=== PATIENT | male | born 1975 | race African-American/Black ===

== ENCOUNTER 2024-06-17 11:06 | Emergency (ER) | payer MEDICAID ==
[~2024-06-17] VITALS: Ht 185.4 cm; Wt 90.0 kg
[~2024-06-17 11:06] MED LIST: ASPI-1160 PO; METO-539 PO; TH25 PO
[2024-06-17 11:09] VITALS: BP 140/86; PULSE 90; RESP 16; O2SAT 95
== END 2024-06-17 11:08 | disposition left against medical advice (07) ==
LOC: ER 11:06
DX: R07.9 Chest pain, unspecified (principal); Z53.21 Procedure and treatment not carried out due to patient leaving prior to being seen by health care provider

== ENCOUNTER 2024-06-17 18:04 | Emergency (ER) | payer OTHER, MEDICAID ==
[~2024-06-17] VITALS: Ht 185.4 cm; Wt 91.0 kg
[2024-06-17 18:05] VITALS: BP 186/115; PULSE 78; RESP 20; O2SAT 97
[2024-06-17] MEDS ORDERED: ASPIRIN 325MG EC TABLET PO ONE (18:15)
== END 2024-06-17 18:56 ==
LOC: ER 18:04
DX: R07.89 Other chest pain (principal); I10 Essential (primary) hypertension; J45.909 Unspecified asthma, uncomplicated; F20.0 Paranoid schizophrenia; Z79.82 Long term (current) use of aspirin
CPT/HCPCS: 93005; 99283

== ENCOUNTER 2024-07-08 15:34 | Emergency (ER) | payer MEDICAID, OTHER ==
[~2024-07-08] VITALS: Ht 177.8 cm; Wt 75.0 kg
[2024-07-08 15:36] VITALS: BP 165/102; PULSE 70; RESP 16; TEMP 98.2; O2SAT 97
[2024-07-08] MEDS ORDERED: POTA-354 MT (21:10)
== END 2024-07-08 16:48 | disposition left against medical advice (07) ==
LOC: ER 15:34
DX: R07.2 Precordial pain (principal); I10 Essential (primary) hypertension; J45.909 Unspecified asthma, uncomplicated
CPT/HCPCS: 99283

== ENCOUNTER 2024-07-08 18:03 | Emergency (ER) | payer MEDICAID ==
[~2024-07-08] VITALS: Ht 177.8 cm; Wt 87.0 kg
[2024-07-08 18:05] VITALS: TEMP 99; O2SAT 100
[2024-07-08 19:13] LABS: CHLORIDE 106 mEq/L (98-107); POTASSIUM 3.2 mEq/L (3.5-5.1); SODIUM 138 mEq/L (136-145)
[2024-07-08 19:14] LABS: BASOPHILS % 0.3 % (0.0-2.0); CALCIUM 8.5 mg/dL (8.7-10.4); CARBON DIOXIDE 26 mEq/L (21-32); EOSINOPHILS % 1.8 % (0.0-5.0); HEMATOCRIT. 37.6 % (42.0-52.0); HEMOGLOBIN. 12.4 g/dL (14.0-18.0); LYMPHOCYTES % 29.8 % (20.0-50.0); MEAN CORPUSCULAR HEMOGLOBIN 27.4 pg (28.0-32.0); MEAN PLATELET VOLUME 9.2 fl (7.4-10.4); MONOCYTES % 5.6 % (2.0-8.0); NEUTROPHILS % 62.5 % (40.0-76.0); PLATELET 218 x1000/uL (130-400); RED BLOOD CELL COUNT 4.53 mill/uL (4.7-6.1); WHITE BLOOD COUNT 7.3 x1000/uL (4.5-11.0)
[2024-07-08 19:15] VITALS: BP 169/94; PULSE 72; RESP 14; O2SAT 96
[2024-07-08] MEDS: ASPIRIN 325MG EC TABLET PO ONE (19:16)
[2024-07-08] MEDS: NITROGLYCERIN 0.4MG TABLET SL SL ONE (19:16)
[2024-07-08 19:18] LABS: INR 0.9; PROTHROMBIN TIME 10.2 sec (9.6-11.0)
[2024-07-08 19:19] LABS: GLUCOSE 128 mg/dL (70-105); UREA NITROGEN BLOOD 17 mg/dL (9-23)
[2024-07-08 19:21] LABS: TROPONIN I HIGH SENSITIVITY 18 ng/L (3.0-53)
[2024-07-08 19:47] LABS: ETHANOL BLOOD < 10 mg/dL (<10)
[2024-07-08] MEDS ORDERED: POTA-354 MT (21:10)
== END 2024-07-08 21:32 | disposition home or self-care (01) ==
LOC: ER 18:03
DX: R07.89 Other chest pain (principal); J45.909 Unspecified asthma, uncomplicated; F20.9 Schizophrenia, unspecified; I10 Essential (primary) hypertension; Z59.00 Homelessness unspecified; Z79.82 Long term (current) use of aspirin
CPT/HCPCS: 36415; 80048; 80320; 83880; 84484; 85025; 93005; 99284; G0480